=== PATIENT | female | born 1975 | race Caucasian/White ===

== ENCOUNTER 2022-05-25 05:17 | Inpatient (IN) | payer MEDICARE, MEDICAID ==
[2022-05-25] VITALS (57 sets, daily range): BP systolic 82–182; BP diastolic 41–148
[~2022-05-25] VITALS: Ht 160 cm; Wt 122.6 kg
[~2022-05-25 05:17] MED LIST: AMLO10TA80 PO; BACL-141 PO; HYDR-4009 PO; LORA10TA7 PO; LURA40TA2 PO; PREG100C PO; PROP10TA10 PO; UBRO50TA PO
[2022-05-25 05:58] LABS: CLARITY URINE CLEAR (CLEAR); COLOR URINE YELLOW (YELLOW); KETONES URINE NEGATIVE (NEGATIVE); LEUKOCYTE ESTERASE URINE NEGATIVE (NEGATIVE); NITRITE URINE NEGATIVE (NEGATIVE); OCCULT BLOOD URINE NEGATIVE (NEGATIVE); PROTEIN URINE NEGATIVE (NEGATIVE); SPECIFIC GRAVITY URINE 1.019 (1.005-1.030)
[2022-05-25 06:03] LABS: UCG SCREEN NEGATIVE
[2022-05-25] MEDS ORDERED: LIDOCAINE HCL/EPINEPHRINE 1%-EPI 1:100,000 10 ML VIAL ONE (06:07)
[2022-05-25] MEDS ORDERED: THROMBIN (BOVINE) 5000 UNITS/VIAL TOP ONE (06:07)
[2022-05-25] MEDS ORDERED: GENTAMICIN SULF 40MG/ML 2ML VIAL ONE (06:08)
[2022-05-25] MEDS ORDERED: BACITRACIN 15GM TUBE TOP ONE (06:08)
[2022-05-25] MEDS ORDERED: SKIN ADHESIVE 0.7 GM EA TOP ONE (06:08)
[2022-05-25] MEDS ORDERED: SODIUM CHLORIDE 0.9% 1,000 ML IV SCH (06:15)
[2022-05-25] MEDS ORDERED: ONDANSETRON HCL 4MG/2ML INJ ONE (07:01)
[2022-05-25] MEDS ORDERED: SUCCINYLCHOLINE CHLORIDE 200MG/10ML IV ONE (07:01)
[2022-05-25] MEDS ORDERED: CEFAZOLIN SODIUM 1000MG/VIAL ONE (07:01)
[2022-05-25] MEDS ORDERED: NEOSTIGMINE METHYLSULFATE 1MG/ML 10 ML VIAL ONE (07:01)
[2022-05-25] MEDS ORDERED: DEXAMETHASONE 4MG/ML 1ML VIAL ONE (07:01)
[2022-05-25] MEDS ORDERED: PROPOFOL 200MG/20ML VIAL IV ONE (07:02)
[2022-05-25] MEDS ORDERED: GLYCOPYRROLATE 0.2 MG/ML 2ML VIAL ONE ×2 (07:02)
[2022-05-25] MEDS ORDERED: MIDAZOLAM HCL 2 MG/2 ML VIAL ONE (07:02)
[2022-05-25] MEDS ORDERED: FENTANYL CITRATE/PF 50MCG/ML 2ML VIAL ONE (07:03)
[2022-05-25] MEDS ORDERED: ROCURONIUM BROMIDE 10MG/ML VIAL 5ML IV ONE (07:12)
[2022-05-25] MEDS ORDERED: NICARDIPINE 100 MG in SODIUM CHLORIDE 0.9% 60 ML IV PRN (07:15)
[2022-05-25] MEDS ORDERED: ERGO1250 PO ×2 (07:25→15:19)
[2022-05-25] MEDS ORDERED: DOCU-150 PO (07:25)
[2022-05-25] MEDS ORDERED: FLUT15.844 NS (07:25)
[2022-05-25] MEDS ORDERED: TOPI-255 PO ×2 (07:25→15:16)
[2022-05-25] MEDS ORDERED: HYDROMORPHONE HCL/PF 2MG/ML CPJ ONE (07:30)
[2022-05-25] MEDS ORDERED: ONDANSETRON HCL 4MG/2ML INJ IV PRN (08:00)
[2022-05-25] MEDS ORDERED: HYDROMORPHONE HCL/PF 2MG/ML CPJ IV PRN (08:00)
[2022-05-25] MEDS ORDERED: LABETALOL 5MG/ML SYR 20 MG/4 ML SYRINGE IV PRN (08:00)
[2022-05-25] MEDS ORDERED: MEPERIDINE HCL/PF 25MG/ML CPJ IV PRN (08:00)
[2022-05-25] MEDS: DEXT 5%/LACTATED RINGERS 1,000 ML IV SCH ×2 (10:17→17:37)
[2022-05-25] MEDS: DEXAMETHASONE 4MG/ML 1ML VIAL IV SCH ×2 (11:14→17:36)
[2022-05-25] MEDS: MORPHINE SULFATE 4 MG/ML CPJ (NOT FOR IM USE) IV PRN ×2 (11:15→13:18)
[2022-05-25] MEDS ORDERED: NALOXONE INJ IV PRN (13:45)
[2022-05-25] MEDS ORDERED: CEFAZOLIN SODIUM 1000MG/VIAL IV SCH (14:00)
[2022-05-25] MEDS: HYDROMORPHONE PCA 10MG/50ML IV PRN (14:22)
[2022-05-25] MEDS: CEFAZOLIN 1000MG PREMIX 50 ML IV SCH ×2 (14:59→22:32)
[2022-05-25] MEDS: ONDANSETRON INJ IV PRN (15:14)
[2022-05-25] MEDS ORDERED: TRAZ-251 PO (15:21)
[2022-05-25] MEDS: TOPIRAMATE 25MG TABLET PO SCH (17:36)
[2022-05-25] MEDS: PREGABALIN 50 MG CAPSULE PO SCH (17:36)
[2022-05-25] MEDS: FLUTICASONE PROPIONATE 50MCG/SPRAY BOTTLE BOTHNSTRLS SCH (20:47)
[2022-05-25] MEDS ORDERED: TOPIRAMATE 100MG TABLET PO SCH (21:00)
[2022-05-26] VITALS (71 sets, daily range): BP systolic 65–183; BP diastolic 41–157
[2022-05-26] MEDS: DEXAMETHASONE 4MG/ML 1ML VIAL IV SCH ×2 (00:21→05:56)
[2022-05-26] MEDS: ONDANSETRON INJ IV PRN ×2 (00:31→14:12)
[2022-05-26] MEDS: LORATADINE 10MG TABLET PO SCH (05:00)
[2022-05-26] MEDS: AMLODIPINE 10MG TABLET PO SCH (05:00)
[2022-05-26 05:12] LABS: BASOPHILS % 0.1 % (0.0-2.0); HEMATOCRIT. 35.9 % (36.0-48.0); HEMOGLOBIN. 11.9 g/dL (12.0-16.0); LYMPHOCYTES % 10.2 % (20.0-50.0); MEAN CORPUSCULAR VOLUME 93.1 fL (81.0-99.0); MEAN PLATELET VOLUME 7.7 fl (7.4-10.4); MONOCYTES % 3.9 % (2.0-8.0); NEUTROPHILS % 85.8 % (40.0-76.0); PLATELET 286 x1000/uL (130-400); RED BLOOD CELL COUNT 3.85 mill/uL (4.2-5.4); RED CELL DISTRIBUTION WIDTH 15.4 % (11.6-14.6)
[2022-05-26 05:27] LABS: CHLORIDE 110 mEq/L (98-107)
[2022-05-26 05:43] LABS: HDL CHOLESTEROL 47 mg/dL (40-59); LDL CHOLESTEROL 158 mg/dL (5-100)
[2022-05-26] MEDS: CEFAZOLIN 1000MG PREMIX 50 ML IV SCH ×2 (06:01→13:16)
[2022-05-26] MEDS: DEXT 5%/LACTATED RINGERS 1,000 ML IV SCH ×2 (06:01→13:16)
[2022-05-26] MEDS: HYDROMORPHONE PCA 10MG/50ML IV PRN (08:22)
[2022-05-26] MEDS: FLUTICASONE PROPIONATE 50MCG/SPRAY BOTTLE BOTHNSTRLS SCH ×2 (08:51→21:39)
[2022-05-26] MEDS: PREGABALIN 50 MG CAPSULE PO SCH ×3 (08:52→17:17)
[2022-05-26] MEDS: TOPIRAMATE 25MG TABLET PO SCH ×2 (08:52→17:19)
[2022-05-26] MEDS: UBRELVY 50 MG PO PRN ×2 (11:19→14:17)
[2022-05-26] MEDS ORDERED: HYDROCODONE/ACETAMINOPHEN 5/325MG TABLET PO PRN (11:45)
[2022-05-26] MEDS: HYDROCODONE/ACETAMINOPHEN 10/325MG TABLET PO PRN ×2 (15:12→19:05)
[2022-05-26] MEDS ORDERED: LORAZEPAM 0.5MG TABLET PO NR (15:15)
[2022-05-26] MEDS ORDERED: LURASIDONE 40 MG PO SCH ×2 (16:30→21:00)
[2022-05-26] MEDS ORDERED: NALOXONE HCL 0.4MG/ML VIAL IV PRN (20:45)
[2022-05-27] VITALS: BP 150/83
[2022-05-27] MEDS: DEXT 5%/LACTATED RINGERS 1,000 ML IV SCH ×2 (00:09→10:00)
[2022-05-27] MEDS: UBRELVY 50 MG PO PRN ×2 (01:22→17:07)
[2022-05-27 04:00] VITALS: BP 137/85
[2022-05-27] MEDS: HYDROCODONE/ACETAMINOPHEN 10/325MG TABLET PO PRN ×2 (04:04→11:28)
[2022-05-27] MEDS: AMLODIPINE 10MG TABLET PO SCH (05:32)
[2022-05-27] MEDS: LORATADINE 10MG TABLET PO SCH (05:32)
[2022-05-27 08:00] VITALS: BP 132/64
[2022-05-27] MEDS: TOPIRAMATE 25MG TABLET PO SCH ×2 (09:23→17:07)
[2022-05-27] MEDS: FLUTICASONE PROPIONATE 50MCG/SPRAY BOTTLE BOTHNSTRLS SCH (09:24)
[2022-05-27] MEDS: PREGABALIN 50 MG CAPSULE PO SCH ×2 (09:24→15:25)
[2022-05-27 12:00] VITALS: BP 132/77
[2022-05-27 16:00] VITALS: BP 152/97
[2022-05-27 19:51] VITALS: BP 132/77
== END 2022-05-27 20:30 | disposition home health service (06) | DRG 471 ==
LOC: OR 05:17 → MICUSO 09:54 → 6EST 05-26 18:23
PROVIDERS: ADMIT Neurological Surgery; ATTEND Neurological Surgery
PROC: 0RG10A0 Fusion of Cervical Vertebral Joint with Interbody Fusion Device, Anterior Approach, Anterior Column, Open Approach (ICD-10-PCS; principal; 2022-05-25)
PROC: 0RB30ZZ Excision of Cervical Vertebral Disc, Open Approach (ICD-10-PCS; 2022-05-25)
DX: M48.02 Spinal stenosis, cervical region (principal); G82.50 Quadriplegia, unspecified; G99.2 Myelopathy in diseases classified elsewhere; I10 Essential (primary) hypertension; M47.892 Other spondylosis, cervical region; G56.03 Carpal tunnel syndrome, bilateral upper limbs; G43.909 Migraine, unspecified, not intractable, without status migrainosus; G89.29 Other chronic pain; E78.5 Hyperlipidemia, unspecified; Z20.822 Contact with and (suspected) exposure to COVID-19; D72.829 Elevated white blood cell count, unspecified; Z98.1 Arthrodesis status; Z82.49 Family history of ischemic heart disease and other diseases of the circulatory system
CPT/HCPCS: 36415; 72040; 72141; 76000; 80053; 80061; 81003; 81025; 83036; 84443; 85025; 86850; 86900; 87426; 88304; 88311; 95925; 95926; 95928; 95929; 97116; 97162; 97535; C9803; J0330; J0690; J1100; J1170; J1580; J2250; J2270; J2405; J2704; J2710; J3010; J3490; J7050; J7121; L0172; C1713